=== PATIENT | female | born 1935 | race Caucasian/White ===

== ENCOUNTER 2022-11-18 18:45 | Emergency (ER) | payer MEDICARE ==
[2022-11-18] MEDS ORDERED: XYLOCAINE 1% HCL 20 ML MDV IJ ONE (18:46)
[2022-11-18 19:00] VITALS: O2SAT 96
--- NOTE | 2022-11-18 19:08 | ERPHSYRPT ---
- History of Present Illness Time Seen by Provider: 11/18/22 19:08 Source: patient, family Exam Limitations: no limitations Patient Subjective Stated Complaint: pt here for left lower leg edema since last night. Triage Nursing Assessment: pt alert, resp easy, skin w/d/p, assist of 2 from wc to bed. skin w/d/p, has redness and swelling to lower left leg Physician History: This is an 87-year-old white female patient who obtains her medical health care from Dr. Vu Smith her indoor sports centre manager. Patient recently changed from Lasix to Bumex. Patient's daughter is providing independent information and states that the Bumex is not helping as much as the Lasix patient has chronic lower leg edema, hypertension, hyperlipidemia, gastroesophageal reflux disease coronary disease and has had a DVT in the left leg in the past and she is fully anticoagulated on Coumadin. Yesterday, the patient and the daughter became concerned because of redness that it increased in the anterior aspect of the left lower extremity and dorsal aspect of the left foot. Home health provider evaluated the patient today and felt there is a possibility of cellulitis in this area. Therefore, the patient was brought to the emergency department by the daughter for antibiotic treatment. Patient denies chest pain. She has no shortness of breath. Per patient's daughter's report and recollection as well as the patient, the patient has had Keflex in the past. Severity of Pain-Max: mild Severity of Pain-Current: mild Lower Extremities Pain: leg: right (In the area of redness) Modifying Factors: Improves With: nothing Associated Symptoms: none Allergies/Adverse Reactions: amoxicillin trihydrate [From Augmentin] Allergy (Verified 11/18/22 18:53) antipyrine Allergy (Verified 11/18/22 18:53) benzocaine Allergy (Verified 11/18/22 18:53) erythromycin base Allergy (Verified 11/18/22 18:53) hydrocodone Allergy (Verified 11/18/22 18:53) Iodine and Iodide Containing Produc Allergy (Verified 11/18/22 18:53) lisinopril [From Zestril] Allergy (Verified 11/18/22 18:53) memantine HCl [From Namenda] Allergy (Verified 11/18/22 18:53) methylprednisolone [From Medrol] Allergy (Verified 11/18/22 18:53) montelukast sodium [From Singulair] Allergy (Verified 11/18/22 18:53) potassium clavulanate [From Augmentin] Allergy (Verified 11/18/22 18:53) Sulfa (Sulfonamide Antibiotics) Allergy (Verified 11/18/22 18:53) SODIUM PENETHOL Allergy (Uncoded 11/18/22 18:53) Home Medications: Aspirin 81 gm Chew [Baby Aspirin 81 mg Chew] 81 mg PO DAILY 06/19/14 [History] Budesonide 0.5 mg/2 ml [Pulmicort 0.5 mg/2 ml Respules] 0.5 mg IH BID 06/19/14 [History] Calcium Carbonate [Calcium] 600 mg PO BID 06/19/14 [History] Cetirizine HCl [Zyrtec] 10 mg PO DAILY 06/19/14 [History] Esomeprazole Magnesium [Nexium] 40 mg PO BID 06/19/14 [History] Furosemide [Lasix] 40 mg PO UD PRN 06/19/14 [History] Gabapentin [Neurontin] 600 mg PO TID 06/19/14 [History] Isosorbide Mononitrate 30 mg [Imdur 30 MG] 30 mg PO DAILY 06/19/14 [History] Potassium Chloride Tab* [Klor Con 10 MEQ] 10 meq PO UD PRN 06/19/14 [History] Pravastatin Sodium [Pravachol] 40 mg PO DAILY 06/19/14 [History] Propranolol HCl [Inderal LA] 160 mg PO DAILY 06/19/14 [History] Valsartan/Hydrochlorothiazide [Diovan Hct 320-25 mg Tablet] 1 each PO DAILY 06/19/14 [History] Warfarin Sodium 2 mg [Coumadin 2 MG] 2 mg PO DAILY 06/19/14 [History] Hx Tetanus, Diphtheria Vaccination/Date Given: No Hx Influenza Vaccination/Date Given: Yes Hx Pneumococcal Vaccination/Date Given: No Immunizations Up to Date: Yes Travel Risk - International Travel Have you traveled outside of the country in past 3 weeks: No - Coronavirus Screening Are you exhibiting any of the following symptoms?: No Close contact with a COVID-19 positive Pt in past 14-21 Days: No - Vaccine Status Have you recieved a Covid-19 vaccination: Yes [employer]: Moderna - Vaccination Dates Date of 2cond Vaccination (if applicable): 2020 - Review of Systems Constitutional: No Symptoms Eyes: No Symptoms Ears, Nose, & Throat: No Symptoms Respiratory: No Symptoms Cardiac: No Symptoms Abdominal/Gastrointestinal: No Symptoms Genitourinary Symptoms: No Symptoms Musculoskeletal: No Symptoms Skin: Cellulitis (Anterior aspect left lower leg and dorsal aspect left foot) Neurological: No Symptoms Psychological: No Symptoms Endocrine: No Symptoms Hematologic/Lymphatic: No Symptoms Immunological/Allergic: No Symptoms All Other Systems: Reviewed and Negative - Past Medical History Pertinent Past Medical History: Yes Cardiac History: Hypertension, Myocardial Infarction ([place]) Musculoskeletal History: Other Other Medical History: anal ca, skin ca.dvt left leg - Past Surgical History Past Surgical History: Yes Gastrointestinal: Rectal Surgery - Social History Smoking Status: Never smoker Exposure to second hand smoke: No Drug Use: none Patient Lives Alone: No - Nursing Vital Signs Nursing Vital Signs: Initial Vital Signs Temperature 97.2 F 11/18/22 18:59 Pulse Rate 81 11/18/22 18:59 Respiratory Rate 18 11/18/22 18:59 Blood Pressure 149/62 11/18/22 18:59 O2 Sat by Pulse Oximetry 96 11/18/22 18:59 Pain Scale Pain Intensity 8 - Physical Exam General Appearance: no apparent distress, alert, obese Eyes, Ears, Nose, Throat Exam: normal ENT inspection, moist mucous membranes Neck Exam: normal inspection, non-tender, supple, full range of motion Cardiovascular/Respiratory Exam: chest non-tender, no respiratory distress Gastrointestinal/Abdominal Exam: non-tender Back Exam: normal inspection, normal range of motion, No CVA tenderness, No vertebral tenderness Hips Exam: bilateral: non-tender, normal inspection, normal range of motion, no evidence of injury Legs Exam: bilateral leg: non-tender, normal inspection, normal range of motion, no evidence of injury Knees Exam: bilateral knee: non-tender, normal inspection, normal range of motion, no evidence of injury Ankle Exam: right ankle: non-tender, normal inspection, left ankle: soft tissue tenderness, other (Cellulitis, redness and warmth anteriorly), bilateral ankle: normal range of motion, no evidence of injury Foot Exam: right foot: non-tender, normal inspection, soft tissue tenderness (Redness warmth mild tenderness), bilateral foot: normal range of motion, no evidence of injury Neuro/Tendon Exam: normal sensation, normal motor functions, normal tendon functions, responds to pain, no evidence tendon injury Mental Status Exam: alert, oriented x 3, cooperative Skin Exam: other (Cellulitis left lower leg and dorsal aspect left foot) SpO2 Interpretation: normal SpO2: 96 O2 Delivery: Room Air - Course Nursing assessment & vital signs reviewed: Yes - Progress Progress: unchanged Progress Note: 11/18/22 19:30 This patient's medical issue is 1 of low complexity. The level of complexity and the work-up performed was based on review of the patient's past medical history, review of the patient's medication list, review of the drug allergy list, review of the history of present illness and physical findings on examination. This patient does not require any lab work-up or radiographic studies. We will treat her cellulitis with Rocephin as she has had Keflex in the past. She has tolerated the Keflex without any side effects per daughter's report. I do not feel it necessary to do a D-dimer at this time or perform an ultrasound of the left lower extremity. Patient is fully anticoagulation on warfarin. She does not have chest pain and she does not have shortness of breath. Counseled pt/family regarding: diagnosis, need for follow-up Medical Desision Making - Independent Historian Additional History obtained from: Child (Daughter) - Risk of complications Low Risk: Low risk of morbidity from additional dx testing or treatment - Departure Departure Disposition: Home Clinical Impression: Cellulitis Condition: Stable Critical Care Time: No Referrals: VON CHENEY [Primary Care Provider] - Follow up/PCP as directed Additional Instructions: Take your antibiotics as prescribed. Follow-up with your primary care physician for further evaluation and management on 11/20/2022. If symptoms worsen return to the emergency department for further evaluation. Prescriptions: Cephalexin Mh 500 mg [Keflex 500 mg] 500 mg PO TID #21 cap
[2022-11-18] MEDS ORDERED: Rocephin 1000 MG INJ IM ONE (19:25)
[2022-11-18] MEDS ORDERED: Rocephin 1000 MG INJ ONE (19:28)
[2022-11-18 19:49] VITALS: BP 148/98; PULSE 70
== END 2022-11-18 20:02 | disposition home or self-care (01) ==
LOC: ED 18:45
DX: L03.116 Cellulitis of left lower limb (principal); I10 Essential (primary) hypertension; E78.5 Hyperlipidemia, unspecified; I25.10 Atherosclerotic heart disease of native coronary artery without angina pectoris; Z79.01 Long term (current) use of anticoagulants; Z79.899 Other long term (current) drug therapy; Z20.828 Contact with and (suspected) exposure to other viral communicable diseases; Z86.718 Personal history of other venous thrombosis and embolism
CPT/HCPCS: 96372; 99282; J0696